=== PATIENT | female | born 1985 | race Caucasian/White ===

== ENCOUNTER 2018-08-25 18:20 | Emergency (ER) | payer OTHER ==
[~2018-08-25] VITALS: Ht 160 cm; Wt 72.6 kg
[2018-08-25] MEDS ORDERED: BIRTH CONTROL (18:48)
[2018-08-25] MEDS ORDERED: Cyclobenzaprine5 MG PO (19:09)
[2018-08-25] MEDS ORDERED: IBUP800 PO (19:09)
== END 2018-08-25 19:19 | disposition home or self-care (01) ==
LOC: ER 18:20
DX: M54.5 Low back pain (principal); M54.2 Cervicalgia; V89.2XXA Person injured in unspecified motor-vehicle accident, traffic, initial encounter
CPT/HCPCS: 99282

== ENCOUNTER → 2019-05-28 | Outpatient (CLI) | payer OTHER ==
[~2019-05-28] MED LIST: BIRTH CONTROL; Cyclobenzaprine5 MG PO; IBUP800 PO
[2019-05-29 15:07] LABS: HPV 16 Negative (Negative); HPV 18 Negative (Negative); HPV OTHER HR TYPES Negative (Negative)
[2019-05-29 15:08] LABS: Candida species (DNA Probe) Negative (NEGATIVE); G. vaginalis (DNA Probe) Negative (NEGATIVE); T. vaginalis (DNA Probe) Negative (NEGATIVE)
== END ==
LOC: LAB 11:55 → LAB SHORT 11:55
PROVIDERS: Nurse Practitioner Family
DX: Z12.4 Encounter for screening for malignant neoplasm of cervix (principal)
CPT/HCPCS: 87070; 87205; 87480; 87510; 87624; 87660; G0145

== ENCOUNTER → 2021-12-28 | Outpatient (CLI) | payer OTHER | END | disposition home or self-care (01) | LOC: LAB 14:46 → LAB SHORT 14:46 | PROVIDERS: Nurse Practitioner Family | DX: Z01.419 Encounter for gynecological examination (general) (routine) without abnormal findings (principal) | CPT/HCPCS: G0145 ==

== ENCOUNTER 2022-08-25 09:17 | Inpatient (IN) | payer OTHER ==
[~2022-08-25] VITALS: Ht 160 cm; Wt 68.7 kg
[~2022-08-25 09:17] MED LIST changes: +MEDR5 PO
[2022-08-25] MEDS ORDERED: IRON18 MG PO (09:39)
--- NOTE | 2022-08-25 10:35 | NUR ---
Ambulatory in Day Surgery History, Chart, Medications and Allergies reviewed before start of procedure. Lungs clear T/O to Auscultation. Patient confirms NPO status and agrees with scheduled surgery. Pre-Op teaching done. Pt verbalizes understanding. PT BELONGINGS PLACED UNDERNEATH GURNEY FOR SAFEKEEPING. PT GLASSES TAKEN TO PACU FOR SAFEKEEPING.
[2022-08-25 10:46] LABS: Bun/Creatinine Ratio 24.1 (12.0-20.0); Calcium, Blood 9.8 mg/dL (8.5-10.1); Creatinine, Blood 0.54 mg/dL (0.40-1.00); Potassium, Blood 4.3 mmol/L (3.5-5.5)
[2022-08-25 14:42] LABS: BASOPHILS ABSOLUTE AUTO 0.04 K/mm3 (0.00-0.23); BASOPHILS PERCENT AUTO 0 % (0-2); EOSINOPHILS ABSOLUTE AUTO 0.03 K/mm3 (0.00-0.68); EOSINOPHILS PERCENT AUTO 0 % (0-6); Hemoglobin 11.1 g/dL (11.5-16.0); IMMATURE GRAN ABSOLUTE AUTO 0.09 K/mm3 (0.00-0.10); IMMATURE GRAN PERCENT AUTO 0 % (0-1); LYMPHOCYTES ABSOLUTE AUTO 1.63 K/mm3 (0.84-5.20); LYMPHOCYTES PERCENT AUTO 8 % (21-46); MONOCYTES ABSOLUTE AUTO 0.72 K/mm3 (0.16-1.47); MONOCYTES PERCENT AUTO 4 % (4-13); Mean Platelet Volume 9.3 fL (9.1-12.4); NEUTROPHILS ABSOLUTE AUTO 18.11 K/mm3 (1.96-9.15); NEUTROPHILS PERCENT AUTO 88 % (41-73); Platelet Count 373 K/mm3 (150-400); White Blood Cell Count 20.62 K/mm3 (4.00-11.30)
[2022-08-25 15:30] LABS: Hematocrit 35.9 % (33.0-51.0); Mean Corpuscular HGB Conc 30.9 g/dL (31.5-36.5); Mean Corpuscular Volume 81 fL (80-100); Red Blood Cell Count 4.44 M/mm3 (3.80-5.20)
[2022-08-25 18:17] LABS: Hemoglobin 12.1 g/dL (11.5-16.0); Mean Platelet Volume 8.8 fL (9.1-12.4); Platelet Count 298 K/mm3 (150-400); White Blood Cell Count 17.81 K/mm3 (4.00-11.30)
--- NOTE | 2022-08-25 18:24 | NUR ---
POST OP: REPORT RECEIVED FROM ATMOSPHERIC PHYSICIST. PT TO UNIT AT ABOUT 1500. ORIENTED, DROWSY, AWAKENS TO VOICE. VSS. SURGICAL SITES WNL. MINIMAL BLEED TO BRANDY PAD. PT MEDICATED PER EMAR FOR PAIN. USING CALL LIGHT
[2022-08-25 18:35] LABS: Hematocrit 38.3 % (33.0-51.0); Mean Corpuscular HGB 26.3 pg (26.0-34.0); Mean Corpuscular HGB Conc 31.6 g/dL (31.5-36.5); Mean Corpuscular Volume 83 fL (80-100)
--- NOTE | 2022-08-25 18:35 | NUR ---
SUMMARY: POD0 TOTAL HYSTER. A/O, VSS. PT HAS BEEN VERY PAINFUL POST OP. REPOSITIONED FOR COMFORT, K PAD APPLIED AND PT SPLINTED ABD WITH PILLOW WHEN REPOSITIONED. SEE EMAR FOR MEDICATIONS GIVEN. PT HAS BEEN ABLE TO SLEEP A LITTLE, THEN AWAKES WITH PAIN. SURGICAL SITE WNL, MINIMAL BLEED AT BRANDY PAD. CASTANON DRAINING. NO ACUTE SAFETY CONCERNS AT THIS TIME.
--- NOTE | 2022-08-26 03:26 | NUR ---
EMPLOYMENT LAW ATTORNEY SUMMARY PT IS POD 0 FOR TOTAL ABD HYSTER W/ DR BELL. PT HAS BEEN VERY PAINFUL POST OP. MEDICATED WITH OXYCODONE WITH MINIMAL PAIN RELIEF. MEDICATED PT MULITPLE TIMES WITH 0.5 MG IV DILAUID WITH BETTER PAIN RELIEF. PT ABLE TO SLEEP FOR A FEW HOURS AFTER BEING MEDICATED. BRIGHT GOLDY URINE DRAINING INTO CASTANON CATH. PT HAS ONE INSTANCE OF URINE LEAKING AROUND CATHETER AFTER PT REPORTED "HAVING A SPASM". CASTANON CATH BALLOON STILL WITH 10 ML NS AND INTACT. PER DR BELL, CASTANON TO BE LEFT IN UNTIL SHE CAN REASSESS PT LATER TODAY. TRANSVERSE MEDIPORE TO LOWER ABD C/D/I. VSS, WILL CONTINUE TO MONITOR.
[2022-08-26 05:16] LABS: BASOPHILS ABSOLUTE AUTO 0.01 K/mm3 (0.00-0.23); BASOPHILS PERCENT AUTO 0 % (0-2); EOSINOPHILS ABSOLUTE AUTO 0.03 K/mm3 (0.00-0.68); EOSINOPHILS PERCENT AUTO 0 % (0-6); Hematocrit 33.3 % (33.0-51.0); IMMATURE GRAN ABSOLUTE AUTO 0.04 K/mm3 (0.00-0.10); IMMATURE GRAN PERCENT AUTO 0 % (0-1); LYMPHOCYTES ABSOLUTE AUTO 1.52 K/mm3 (0.84-5.20); LYMPHOCYTES PERCENT AUTO 13 % (21-46); MONOCYTES ABSOLUTE AUTO 1.26 K/mm3 (0.16-1.47); MONOCYTES PERCENT AUTO 11 % (4-13); Mean Corpuscular HGB 26.1 pg (26.0-34.0); Mean Corpuscular Volume 79 fL (80-100); Mean Platelet Volume 9.2 fL (9.1-12.4); NEUTROPHILS ABSOLUTE AUTO 9.02 K/mm3 (1.96-9.15); NEUTROPHILS PERCENT AUTO 76 % (41-73); Platelet Count 328 K/mm3 (150-400); RDW Coefficient Variation 24.7 % (11.7-14.2); Red Blood Cell Count 4.21 M/mm3 (3.80-5.20); White Blood Cell Count 11.88 K/mm3 (4.00-11.30)
--- NOTE | 2022-08-26 17:39 | NUR ---
PT PAINFUL THROUGHOUT SHIFT, REPORTS PAIN HAS DECREASED SOMEWHAT FROM DURING NOC. ABD DRESSING DRY AND INTACT. NO DRAINAGE ON BRANDY PAD. PT OOB WITH STANDBY ASSIST. ROBINSON PO WITHOUT NAUSEA. CASTANON WITH CLEAR YELLOW OUTPUT
--- NOTE | 2022-08-27 04:59 | NUR ---
STATOR TESTER SUMMARY POD 1 FOR [place]. PT CONTINUES TO NEED REGULAR PAIN MEDICATIONS. OXYCODONE AND IV DILAUDID HAVE MANAGED PAIN WELL. PT REPORTS BEING MORE PAINFUL AFTER GETTING UP OUT OF BED. PT WALKED AROUND ROOM A BIT MULTIPLE TIMES TONIGHT. HAS BEEN ABLE TO SLEEP AFTER PAIN MEDICATION. CASTANON CATHETER PATENT AND DRAINING YELLOW URINE, PT TO BE DC'D WITH CASTANON PER DR BELL. VSS, WILL CONTINUE TO MONITOR.
--- NOTE | 2022-08-27 12:37 | NUR ---
DR UNGER HERE AND REMOVED ABD DRESSING. PT REPORTS HAVING "SHARP GAS PAINS" ORDERS RECEIVED
--- NOTE | 2022-08-27 17:21 | NUR ---
pt painful throughout shift. pt reports as sharp gas pain in abdomen and right shoulder. no vaginal drainage, abd incision intact and without drainage. shook in place with clear yellow output
--- NOTE | 2022-08-27 17:42 | NUR ---
1740 pt reports slightly dizzy when got oob, resolved after sitting in chair for a few minutes
--- NOTE | 2022-08-27 23:08 | NUR ---
SHIFT REPORT GIVEN TO ROBBIE SLOAN. PT SLEEPING IN BED. HAD SEVERE PAIN EARLIER IN SHIFT MEDICATED PER EMAR. INCIISION C/D/I. PT REPORSITIONING FOR PAIN AND USING HEATING PAD. CATHETER IN PLACE AND DRAINING YELLOW URINE. BED IN LOWEST POSITION AND CALL LIGHT IN REACH
--- NOTE | 2022-08-27 23:16 | NUR ---
REPORT GIVEN TO PÉREZ DOUGLAS
--- NOTE | 2022-08-27 23:38 | NUR ---
ASSUMED CARE REPORT TAKEN TO ASSUME CARE OF PT AT 2315. PT RESTING IN BED, SHE REPORTS SOME GAS PAIN BUT DENIED NEEDS WHEN ASKED. WILL CONTINUE MONITORING.
--- NOTE | 2022-08-28 04:22 | NUR ---
SHIFT SUMMARY NO ACUTE CHANGES SINCE ASSUMING CARE, PT HAS RESTED ON AND OFF T/O THE SHIFT. PT CONTINUES TO BE PAINFUL. SHE COMPLAINS OF ABD PAIN AND GAS PAIN. MEDICATED PER ORDERS. ASSESSMENT UNCHANGED, BED IN LOWEST POSITION, CALL LIGHT WITHIN REACH.
[2022-08-28] MEDS ORDERED: ACET325 PO (13:02)
[2022-08-28] MEDS ORDERED: BENADRYL25 MG PO (13:03)
[2022-08-28] MEDS ORDERED: OXAYDO5 M1 PO (13:03)
[2022-08-28] MEDS ORDERED: DOCU100 PO (13:03)
[2022-08-28] MEDS ORDERED: SIME80CH PO (13:04)
== END 2022-08-28 13:30 | disposition home or self-care (01) | DRG 742 ==
LOC: SURS 09:17 → PRE IP 10:30 → SURS 14:59
PROVIDERS: ADMIT Obstetrics & Gynecology
PROC: 0UB70ZZ Excision of Bilateral Fallopian Tubes, Open Approach (ICD-10-PCS; 2022-08-25)
PROC: 0TJB8ZZ Inspection of Bladder, Via Natural or Artificial Opening Endoscopic (ICD-10-PCS; 2022-08-25)
PROC: 0UT90ZZ Resection of Uterus, Open Approach (ICD-10-PCS; principal; 2022-08-25 10:30)
DX: N85.2 Hypertrophy of uterus (principal); D62 Acute posthemorrhagic anemia; R39.81 Functional urinary incontinence; M95.5 Acquired deformity of pelvis; R14.1 Gas pain; N93.9 Abnormal uterine and vaginal bleeding, unspecified; D50.9 Iron deficiency anemia, unspecified; F41.9 Anxiety disorder, unspecified; N32.89 Other specified disorders of bladder; Z98.890 Other specified postprocedural states; Z79.899 Other long term (current) drug therapy; Z91.040 Latex allergy status
CPT/HCPCS: 36415; 80048; 85025; 85027; 86850; 86900; 86901; 86923; 88307; 94760; A9270; J0690; J1100; J1170; J1885; J2250; J2370; J2405; J2704; J2795; J3010; J7120

== ENCOUNTER → 2022-10-01 | Outpatient (CLI) | payer OTHER ==
[~2022-10-01] MED LIST changes: +ACET325 PO; +BENADRYL25 MG PO; +DOCU100 PO; +IRON18 MG PO; +OXAYDO5 M1 PO; +SIME80CH PO
[2022-10-01 19:39] LABS: BASOPHILS ABSOLUTE AUTO 0.03 K/mm3 (0.00-0.23); BASOPHILS PERCENT AUTO 0 % (0-2); EOSINOPHILS PERCENT AUTO 2 % (0-6); Hemoglobin 13.5 g/dL (11.5-16.0); IMMATURE GRAN ABSOLUTE AUTO 0.01 K/mm3 (0.00-0.10); IMMATURE GRAN PERCENT AUTO 0 % (0-1); LYMPHOCYTES ABSOLUTE AUTO 2.09 K/mm3 (0.84-5.20); LYMPHOCYTES PERCENT AUTO 24 % (21-46); MONOCYTES ABSOLUTE AUTO 0.85 K/mm3 (0.16-1.47); MONOCYTES PERCENT AUTO 10 % (4-13); Mean Corpuscular HGB 28.2 pg (26.0-34.0); Mean Corpuscular HGB Conc 32.9 g/dL (31.5-36.5); Mean Corpuscular Volume 86 fL (80-100); Mean Platelet Volume 9.7 fL (9.1-12.4); NEUTROPHILS ABSOLUTE AUTO 5.47 K/mm3 (1.96-9.15); NEUTROPHILS PERCENT AUTO 63 % (41-73); Platelet Count 330 K/mm3 (150-400); RDW Coefficient Variation 15.6 % (11.7-14.2); RDW Standard Deviation 46.9 fL (35.1-46.3); Red Blood Cell Count 4.79 M/mm3 (3.80-5.20); White Blood Cell Count 8.65 K/mm3 (4.00-11.30)
== END | disposition home or self-care (01) ==
LOC: LAB SHORT 15:35 → LAB 15:35
PROVIDERS: Student in an Organized Health Care Education/Training Program
DX: D64.9 Anemia, unspecified (principal)
CPT/HCPCS: 85025

== ENCOUNTER 2023-01-14 13:20 | Emergency (ER) | payer OTHER ==
[~2023-01-14] VITALS: Ht 160 cm; Wt 72.6 kg
[2023-01-14 14:34] LABS: Bun/Creatinine Ratio 22.7 (12.0-20.0); Calcium, Blood 8.9 mg/dL (8.5-10.1); Creatinine, Blood 0.53 mg/dL (0.40-1.00); Potassium, Blood 4.4 mmol/L (3.5-5.5)
[2023-01-14 14:58] LABS: BASOPHILS ABSOLUTE AUTO 0.03 K/mm3 (0.00-0.23); BASOPHILS PERCENT AUTO 0 % (0-2); EOSINOPHILS ABSOLUTE AUTO 0.25 K/mm3 (0.00-0.68); EOSINOPHILS PERCENT AUTO 3 % (0-6); Hematocrit 40.6 % (33.0-51.0); Hemoglobin 14.4 g/dL (11.5-16.0); IMMATURE GRAN ABSOLUTE AUTO 0.04 K/mm3 (0.00-0.10); IMMATURE GRAN PERCENT AUTO 0 % (0-1); LYMPHOCYTES ABSOLUTE AUTO 1.74 K/mm3 (0.84-5.20); LYMPHOCYTES PERCENT AUTO 19 % (21-46); MONOCYTES ABSOLUTE AUTO 0.65 K/mm3 (0.16-1.47); MONOCYTES PERCENT AUTO 7 % (4-13); Mean Corpuscular HGB 30.1 pg (26.0-34.0); Mean Corpuscular HGB Conc 35.5 g/dL (31.5-36.5); Mean Corpuscular Volume 85 fL (80-100); Mean Platelet Volume 9.5 fL (9.1-12.4); NEUTROPHILS ABSOLUTE AUTO 6.36 K/mm3 (1.96-9.15); NEUTROPHILS PERCENT AUTO 70 % (41-73); Platelet Count 342 K/mm3 (150-400); RDW Coefficient Variation 13.2 % (11.7-14.2); Red Blood Cell Count 4.79 M/mm3 (3.80-5.20); White Blood Cell Count 9.07 K/mm3 (4.00-11.30)
[2023-01-14 15:39] VITALS: BP 131/84
== END 2023-01-14 16:28 | disposition home or self-care (01) ==
LOC: ER 13:20
PROVIDERS: Physician Assistant
DX: R55 Syncope and collapse (principal)
CPT/HCPCS: 80048; 81025; 82947; 85025; 93005; 93010; 99284-25

== ENCOUNTER 2023-06-13 12:34 | Emergency (ER) | payer OTHER ==
[~2023-06-13] VITALS: Ht 160 cm; Wt 72.6 kg
[2023-06-13 13:15] VITALS: BP 155/94
[2023-06-13] MEDS ORDERED: ALBU90OI INH (14:58)
== END 2023-06-13 16:01 | disposition home or self-care (01) ==
LOC: ER 12:34
DX: J20.9 Acute bronchitis, unspecified (principal); R06.2 Wheezing
CPT/HCPCS: 71046; 94640; 94664; 99283-25

== ENCOUNTER 2023-11-26 12:46 | Emergency (ER) | payer OTHER ==
[~2023-11-26] VITALS: Ht 160 cm; Wt 74.8 kg
[~2023-11-26 12:46] MED LIST changes: +ALBU90OI INH
[2023-11-26 13:01] VITALS: BP 150/90
[2023-11-26 13:14] LABS: Source, Urine Clean Catch
[2023-11-26 13:27] LABS: Appearance, Urine Clear (Clear); Bilirubin, Urine Neg (Neg); Blood, Urine 3+ (Neg); Color, Urine Yellow (P-Yellow); Glucose Qualitative, Urine Neg (Neg); Ketones, Urine Neg (Neg); Leukocyte Esterase, Urine Neg (Neg); Nitrite, Urine Neg (Neg); Protein, Urine 1+ (Neg); Urobilinogen, Urine NORM (Normal)
[2023-11-26 13:40] LABS: Bacteria Many /hpf; Squamous Epithelial Cells Mod /hpf (Few); White Blood Cells, Urine 0-2 /hpf (0-5)
[2023-11-26] MEDS ORDERED: NITR100CA PO (14:01)
== END 2023-11-26 14:28 | disposition home or self-care (01) ==
LOC: ER 12:46
PROVIDERS: Nurse Practitioner
DX: N39.0 Urinary tract infection, site not specified (principal)
CPT/HCPCS: 81001; 87086; 99283

== ENCOUNTER 2025-06-03 15:23 | Emergency (ER) | payer OTHER ==
[~2025-06-03] VITALS: Ht 160 cm; Wt 74.8 kg
[~2025-06-03 15:23] MED LIST changes: +NITR100CA PO
[2025-06-03 16:13] LABS: BASOPHILS ABSOLUTE AUTO 0.04 K/mm3 (0.00-0.23); BASOPHILS PERCENT AUTO 0 % (0-2); EOSINOPHILS ABSOLUTE AUTO 0.27 K/mm3 (0.00-0.68); EOSINOPHILS PERCENT AUTO 3 % (0-6); Hematocrit 41.5 % (33.0-51.0); Hemoglobin 14.1 g/dL (11.5-16.0); IMMATURE GRAN ABSOLUTE AUTO 0.05 K/mm3 (0.00-0.10); IMMATURE GRAN PERCENT AUTO 1 % (0-1); LYMPHOCYTES ABSOLUTE AUTO 2.19 K/mm3 (0.84-5.20); LYMPHOCYTES PERCENT AUTO 22 % (21-46); MONOCYTES ABSOLUTE AUTO 0.72 K/mm3 (0.16-1.47); MONOCYTES PERCENT AUTO 7 % (4-13); Mean Corpuscular HGB Conc 34.0 g/dL (31.5-36.5); Mean Corpuscular Volume 89 fL (80-100); NEUTROPHILS ABSOLUTE AUTO 6.52 K/mm3 (1.96-9.15); NEUTROPHILS PERCENT AUTO 67 % (41-73); NRBC ABSOLUTE 0.00 K/mm3 (0.00-0.02); NRBC Auto 0.0 /100 WBC (0.0-0.2); Platelet Count 313 K/mm3 (150-400); RDW Coefficient Variation 12.4 % (11.7-14.2); RDW Standard Deviation 40.1 fL (35.1-46.3)
[2025-06-03 16:29] LABS: Alanine Aminotransfer (ALT/SGP 32.0 U/L (12-78); Albumin, Blood 4.0 g/dL (3.4-5.0); Albumin/Globulin Ratio 1.0 (0.8-1.8); Anion Gap 9.0 mmol/L (3-11); Aspartate Aminotrans (AST/SGOT 21.0 U/L (12-37); Bilirubin, Total 0.3 mg/dL (0.1-1.0); Blood Urea Nitrogen 14.0 mg/dL (8-24); CO2, Blood 24.0 mmol/L (21-32); Calcium, Blood 9.0 mg/dL (8.5-10.1); Chloride, Blood 107.0 mmol/L (98-108); Creatinine, Blood 0.46 mg/dL (0.40-1.00); Globulin, Blood 4.0 g/dL (2.2-4.0); Glucose, Blood 99.0 mg/dL (70-99); Potassium, Blood 3.6 mmol/L (3.5-5.5); Sodium, Blood 136.0 mmol/L (136-145); Total Protein, Blood 8.0 g/dL (6.4-8.2)
[2025-06-03 16:54] LABS: Thyroid Stimulating Hormone 0.936 uIU/mL (0.360-4.800)
[2025-06-03 19:00] VITALS: BP 125/82
== END 2025-06-03 19:12 | disposition home or self-care (01) ==
LOC: ER 15:23
PROVIDERS: Student in an Organized Health Care Education/Training Program
DX: R00.2 Palpitations (principal); Z79.899 Other long term (current) drug therapy
CPT/HCPCS: 71046; 80053; 84439; 84443; 84481; 84484; 85025; 93005; 93010; 99285-25

== ENCOUNTER → 2025-06-05 | Outpatient (CLI) | payer OTHER ==
[2025-06-05 11:48] LABS: Ferritin, Serum 126.0 ng/mL (8-252); Total Iron Binding Capacity 356.0 ug/dL (250-450)
== END | disposition home or self-care (01) ==
LOC: LAB 08:20 → LAB SHORT 08:20
PROVIDERS: Student in an Organized Health Care Education/Training Program
DX: E55.9 Vitamin D deficiency, unspecified (principal); E61.1 Iron deficiency; R00.2 Palpitations
CPT/HCPCS: 82306; 82728; 83540; 83550